=== PATIENT | male | born 1995 | race Caucasian/White ===

== ENCOUNTER 2017-03-31 19:29 | Emergency (ER) | payer BC ==
[~2017-03-31 19:29] MED LIST: ADDERALL PO; ADDERALLXR PO; BENTYL20 MG PO; CLONIDINE TOP; FLEXERIL PO; HYDROCODON-ACE1 EAC7 PO; MOTRIN600 M2 PO; NAPROSYN500 MG PO; NAPROXEN PO; NEURONTIN PO; NICOTINE TRANSD14 MG EXT; NO MEDICATIONS; TRAMADOL HCL50 M2 PO; ZOFRAN ODT4 MG PO; ZOFRANODT PO
[2017-03-31 19:51] LABS: URINE SOURCE CLEAN CATCH
[2017-03-31 19:53] LABS: URINE APPEARANCE SL CLOUDY; URINE BILIRUBIN NEG (NEG); URINE BLOOD 1+ (NEG); URINE COLOR YELLOW; URINE GLUCOSE NEG (NORM); URINE KETONE NEG (NEG); URINE LEUKOCYTE ESTERASE 2+ (NEG); URINE NITRATE NEG (NEG); URINE PROTEIN NEG (NEG)
[2017-03-31 19:55] LABS: MICRO INDICATED? YES
[2017-03-31 20:07] LABS: CULTURE INDICATED? YES; URINE BACTERIA 2+ (NEG); URINE MUCUS PRESENT; URINE SQUAMOUS EPITHELIAL CELL FEW /[HPF]; URINE WBC 50-100 /[HPF] (0-5); URINE YEAST PRESENT
[2017-04-03 08:07] LABS: CHLAMYDIA TRACH Not Detected (Not Detected); N GONOR Detected (Not Detected)
== END 2017-03-31 20:17 | disposition home or self-care (01) ==
LOC: SED 19:29
PROVIDERS: Emergency Medicine
DX: N34.2 Other urethritis (principal); F17.200 Nicotine dependence, unspecified, uncomplicated; Z88.1 Allergy status to other antibiotic agents
CPT/HCPCS: 81003; 87086; 87491; 87591; 96372; 99283; J0696

== ENCOUNTER 2017-05-06 10:49 | Emergency (ER) | payer BC ==
--- NOTE | ~2017-05-06 | CR282 ---
[facility]. [facility] A Service of [facility] & [facility] RADIOLOGY TEXT RESULTS PATIENT: ROXY KRAUSE LOCATION: SED : [birth year] UNIT #: [id number] AGE: [address]: HAM DOWNS SEX: M ORDER DR: [id number] [address] [address] [id number] MR#: [id number] Acc #: [id number] NAME: ROXY KRAUSE : 1995 SEX: M STUDY DATE/TIME: 05/06/2017 1107 UNIT: SED ROOM: STUDY DESCRIPTION: CR Wrist Min 3 View Rt Attending Physician: Ham Downs Ordering Physician: Osvaldo Zambrano M.D. Primary Care Physician: No Primary Care Physician MEDICAL IMAGING REPORT This report is preliminary unless electronic signature is present. EXAM Right wrist 3 views 05/06/2017 1107 hours HISTORY 21-year-old man who fell last night complaining of lateral hand and wrist pain since fall. COMPARISON None. FINDINGS AP, lateral and oblique views demonstrate normal bone density. The distal radius and ulna and carpal bones are normal. No fracture or dislocation. IMPRESSION Negative right wrist. Dictated by... Luisa Moreau M.D. THIS IS AN ELECTRONICALLY VERIFIED REPORT Luisa Moreau M.D. at 05/07/2017 9:29 AM Fred TD: 05/06/2017 15:39 JOB #: [id number] MEDICAL IMAGING REPORT Page 1 of 1
--- NOTE | ~2017-05-06 | CR142 ---
[facility]. [facility] A Service of [facility] & [facility] RADIOLOGY TEXT RESULTS PATIENT: ROXY KRAUSE LOCATION: SED : [birth year] UNIT #: [id number] AGE: [address]: HAM DOWNS SEX: M ORDER DR: [id number] [address] [address] [id number] MR#: [id number] Acc #: [id number] NAME: ROXY KRAUSE : 1995 SEX: M STUDY DATE/TIME: 05/06/2017 11:07 UNIT: SED ROOM: STUDY DESCRIPTION: CR Hand Min 3 Views Rt Attending Physician: Ham Downs Ordering Physician: Ham Downs Primary Care Physician: Primary Care Physician No MEDICAL IMAGING REPORT This report is preliminary unless electronic signature is present. EXAM Right hand 3 views, 05/06/2017 11:07 hours HISTORY 21-year-old man who fell last night complaining of hand and wrist pain since fall. COMPARISON None FINDINGS AP, lateral, and oblique views of the right hand demonstrate normal bone density. There is no fracture or dislocation. IMPRESSION Negative right hand. Dictated by... Luisa Moreau M.D. THIS IS AN ELECTRONICALLY VERIFIED REPORT Luisa Moreau M.D. at 05/07/2017 9:29 AM Baylee TD: 05/06/2017 15:37 JOB #: [id number] MEDICAL IMAGING REPORT Page 1 of 1
== END 2017-05-06 11:53 | disposition home or self-care (01) ==
LOC: SED 10:49
DX: S56.911A Strain of unspecified muscles, fascia and tendons at forearm level, right arm, initial encounter (principal); S60.221A Contusion of right hand, initial encounter; F17.210 Nicotine dependence, cigarettes, uncomplicated; X58.XXXA Exposure to other specified factors, initial encounter; Y92.89 Other specified places as the place of occurrence of the external cause
CPT/HCPCS: 29260; 73110; 73130; 99283

== ENCOUNTER 2017-05-14 17:14 | Emergency (ER) | payer BC ==
[2017-05-14 17:44] LABS: URINE SOURCE CLEAN CATCH
[2017-05-14 17:46] LABS: URINE APPEARANCE CLEAR; URINE BILIRUBIN NEG (NEG); URINE BLOOD TRACE-INTACT (NEG); URINE COLOR YELLOW; URINE GLUCOSE NEG (NORM); URINE KETONE NEG (NEG); URINE LEUKOCYTE ESTERASE 1+ (NEG); URINE NITRATE NEG (NEG); URINE PH 6.5 (5-8); URINE PROTEIN NEG (NEG); URINE SPECIFIC GRAVITY <=1.005 (1.003-1.035); URINE UROBILINOGEN 0.2 MG/DL (NORM)
[2017-05-14 17:58] LABS: MICRO INDICATED? YES
[2017-05-14 18:01] LABS: CULTURE INDICATED? NO; URINE BACTERIA NEG (NEG); URINE RBC 0-2 /[HPF] (0-2)
[2017-05-17 00:50] LABS: CHLAMYDIA TRACH Not Detected (Not Detected); N GONOR Detected (Not Detected)
== END 2017-05-14 18:15 | disposition home or self-care (01) ==
LOC: SED 17:14 → CED 17:28 → SED 17:28
PROVIDERS: Physician Assistant
DX: N34.1 Nonspecific urethritis (principal); F17.210 Nicotine dependence, cigarettes, uncomplicated; Z88.1 Allergy status to other antibiotic agents
CPT/HCPCS: 81003; 87491; 87591; 96372; 99283; J0696